=== PATIENT | female | born 1985 | race Caucasian/White ===

== ENCOUNTER 2016-10-02 23:16 | Emergency (ER) | payer BC ==
[2016-10-02] MEDS ORDERED: valACYclovir 500 MG Tab PO ONE (23:54)
[2016-10-03 00:35] VITALS: BP 128/82
--- NOTE | 2016-10-05 14:04 | ER ---
DATE SEEN: 10/02/2016 TIME SEEN: The patient was seen at 2325 hours. CHIEF COMPLAINT: Left chest rash, possible shingles. HISTORY OF PRESENT ILLNESS: This 30-year-old single 1, para 1, woman notes the onset this morning of left posterolateral chest discomfort. She has soreness of the skin for the past 4 days. The blisters were first noted today now. She notes she has moderate stress in her job, lives with her boyfriend, and baby have been demanding for her. The patient denies fever, denies headache, neck stiffness, upper respiratory or lower respiratory symptoms, cough or sore throat. She is a nonsmoker. No heart disease, other serious illness, hospitalization, or other surgery. REVIEW OF SYSTEMS: Negative. The patient denies headache. PHYSICAL EXAMINATION: HEENT: Without abnormality. No pharyngeal erythema. No lesions in her mouth. NECK: No cervical adenopathy. No thyromegaly. No masses in the neck. LUNGS: Clear to auscultation without rales, rhonchi, or wheezes. HEART: S1, S2. No irregular rate or rhythm. With nurse present in the room, the chest is examined. I did not examine her breasts. She denies having lesions on her breasts. Below the left breast and lateral to the anterior axillary line, there are 3 denuded erythematous lesions approximately 4 mm each. No linear angitis. They are mildly tender. They follow the rib line. ABDOMEN: Soft, without abdominal discomfort. ASSESSMENT AND PLAN: 1. 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 2. The patient is breast-feeding. 3. She has a concern about breast-feeding and taking medicine for herpes zoster. 4. The [employer] states that she can take valacyclovir 1 tablet 3 times a day 1 g per tablet for 7 days without complications or problems or difficulties experienced with the . The patient has been prescribed valacyclovir 1 g one tablet 3 times a day, 21 tablets. Follow up with doctor as needed. She must cover this area of her body while she is breast-feeding. Otherwise, she will transmit the shingles to her baby and could have disastrous complications. Wash her hands frequently and do not scratch or pick at the lesions. /[id number] MARVIN AHN
== END 2016-10-03 00:25 | disposition home or self-care (01) ==
LOC: FB.ED 23:16
DX: B02.9 Zoster without complications (principal)
CPT/HCPCS: 99282; A9270